=== PATIENT | female | born 1950 | race Caucasian/White ===

== ENCOUNTER 2022-02-24 06:13 | Emergency (ER) | payer MEDICARE, OTHER, SELFPAY ==
[2022-02-24 06:17] VITALS: BP 196/112; PULSE 84; RESP 18; TEMP 36.8; O2SAT 94; BMI 42.2
--- NOTE | 2022-02-24 06:37 | W.ED.SOB ---
HPI - SOB/Dyspnea General: Chief Complaint: Shortness of Breath/Dyspnea Stated Complaint: DEHYDRATION Time Seen by Provider: 02/24/22 06:24 History of Present Illness: HPI Narrative: 72-year-old female who presents to the emergency department with ongoing cough and shortness of breath. Patient reports that she for started having symptoms on the , 19 days ago. She saw her doctor around the . She was put on an antibiotic for possible pneumonia. This did not work and so she got changed to cefdinir on Wednesday, 9 days. She is about finished with this round of antibiotics. She has not noticed much improvement. Of note she has not had any fever or chills. 1 time she was checking her temperature she got 100.5 but could not reproduce that. Her cough is alternating between dry and productive of clear to yellow phlegm. It is worse with laying back and she notices it more during the day. She has been using cough drops. She has not complaining of any lower extremity swelling, pain, redness, hemoptysis. She is taking Xarelto for a history of chronic atrial fibrillation. She also suffers from chronic hypertension and takes metoprolol and hydrochlorothiazide. She has not yet taken her medications this morning. Reason for visit is the fact that her symptoms do not seem to be improving despite taking the medications offered by primary care physician. Of note she has not had a chest x-ray. She denies any known history of congestive heart failure (although she does not really understand this diagnosis during our conversation) Associated symptoms: Reports abdominal pain (coughed so hard feels a pain in right mid abdomen) and chest congestion; Deny chest pain, extremity pain, fever(s), hemoptysis, nausea, syncope or vomiting Review of Systems General: Reports: 10 or more systems reviewed and unremarkable except in HPI and below Const: Denies: fever(s), chills or body aches Eyes: Denies: change in vision ENMT: Denies: throat pain Card: Denies: chest pain, edema or syncope Resp: Reports: dyspnea, productive cough and chest congestion; Denies: wheezing, pain on inspiration or hemoptysis GI: Reports: abdominal pain (coughed so hard feels a pain in right mid abdomen); Denies: nausea, vomiting, diarrhea, GI cramping or change in bowel habits : Denies: flank pain, dysuria or urinary frequency Musc: Denies: neck pain, back pain, extremity pain or extremity swelling Skin/Breast: Denies: rash or erythema Neuro: Denies: headache(s), numbness in extremities, weakness in extremities, lack of coordination or difficulty walking Physical Exam Const: COMMON NORMALS: no limitations, alert and well nourished EXAM LIMITATIONS: no altered mental status GENERAL APPEARANCE: cooperative and well developed ORIENTATION/CONSCIOUSNESS: Yes awake; not confused HENMT: COMMON NORMALS: normocephalic, atraumatic, external ears normal and Normal external nose present HEAD & SCALP: normal to inspection, normocephalic and atraumatic FACE & SINUS: face symmetric NOSE: Normal external nose present EXTERNAL EAR: Yes external ears normal MOUTH: no muffled voice Eye: COMMON NORMALS: EOMs intact bilaterally and conjunctivae normal GENERAL EYE: appearance normal, both eyes and all related structures CONJUNCTIVA: Yes conjunctivae normal Neck/C-Spine: COMMON NORMALS: no JVD GENERAL: Yes normal visual inspection and Yes trachea midline Resp: COMMON NORMALS: No retractions and No use of accessory muscles EFFORT & INSPECTION: Yes able to speak in complete sentences, Yes symmetric chest movement and Yes Actively coughing non-productive Cardio: COMMON NORMALS: no JVD and regular rate RATE: regular rate RHYTHM: abnormal rhythm PERIPHERAL PULSES: radial pulses present GI: COMMON NORMALS: Soft to palpation INSPECTION: Yes normal to inspection PALPATION: Yes Soft to palpation, No Tenderness to palpation present (GI) and No Guarding due to palpation present (GI) Back/Pelvis: COMMON NORMALS: thoraco-lumbar ROM normal Extremity: COMMON NORMALS: normal to inspection GENERAL: Yes normal exam except as noted Neuro: COMMON NORMALS: moves all extremities, no focal motor deficits and no sensory deficits noted SENSORIUM/ORIENTATION: Yes alert Psych: COMMON NORMALS: mental status grossly normal, Normal thought process present, cooperative, normal affect and speech normal SPEECH: Yes normal speech THOUGHT PROCESS: Normal thought process present Skin: COMMON NORMALS: no rashes or lesions noted, turgor normal and no jaundice GENERAL SKIN EXAM: no rashes or lesions noted and turgor normal Course Vital Signs: Vital signs: Vital Signs Temperature 98.3 F 02/24/22 06:17 Pulse Rate 81 02/24/22 08:38 Respiratory Rate 18 02/24/22 08:38 Blood Pressure 149/90 02/24/22 08:38 Pulse Oximetry 95 02/24/22 08:38 MDM - SOB/Dyspnea Medical Decision Making 72-year-old female with 19 days of cough and reported short of breath. She has been through 2 rounds of antibiotics without any subjective improvement. She is not hypoxic, tachypneic, or febrile on arrival. Her blood pressure is elevated and she is in atrial fibrillation--she has not yet taken her metoprolol, hydrochlorothiazide, Eliquis for the day. Pneumonia is still on differential diagnosis although with failure of antibiotics 1 must consider other causes such as noninfectious inflammatory diseases, congestive heart failure, effusions, neoplastic processes, etc. Pulmonary embolism is quite unlikely based on history and exam as well as the fact that the patient is taking Eliquis. She does seem to have orthopnea and dyspnea on exertion and so a proBNP is added. No evidence of JVD on examination. Chest x-ray does not show any sign of infiltrate but there is cardiomegaly. No significant pleural effusion. BNP elevated. Trop minimally elevated, but stable over 2 hrs. Patient given 40mg of lasix and is diuresing. She has hx of MVP. Pt will be started on 20mg of lasix with 20 meq K+ daily and I recommended she get an echocardiogram. I do not think she needs to continue cefdinir. Pt in agreement with plan. Lab Data : 02/24/22 06:24 02/24/22 06:24 Labs/Radiology: Radiology Impressions Chest X-Ray 02/24/22 07:32 IMPRESSION: 1. Mild cardiac enlargement. No acute cardiopulmonary process. Laboratory Results WBC 6.4 10^3/uL (4.0-10.0) 02/24/22 06:24 RBC 4.85 10^6/uL (4.1-5.3) 02/24/22 06:24 Hgb 14.3 g/dL (11.5-15.3) 02/24/22 06:24 Hct 45.5 % (37.0-47.0) 02/24/22 06:24 MCV 93.8 fl (81-99) 02/24/22 06:24 MCH 29.5 pg (28.0-34.0) 02/24/22 06:24 MCHC 31.4 g/dL (30.0-36.0) 02/24/22 06:24 RDW 14.4 % (12.1-15.1) 02/24/22 06:24 Plt Count 175 10^3/cmm (130-400) 02/24/22 06:24 MPV 11.7 fL (7.4-10.4) H 02/24/22 06:24 Neut % (Auto) 58.0 % 02/24/22 06:24 Lymph % (Auto) 27.0 % 02/24/22 06:24 [place] % (Auto) 12.3 % 02/24/22 06:24 Eos % (Auto) 1.6 % 02/24/22 06:24 Baso % (Auto) 0.8 % 02/24/22 06:24 Neut # (Auto) 3.69 10^3/uL (1.8-7.7) 02/24/22 06:24 Lymph # (Auto) 1.7 10^3/uL (0.8-4.8) 02/24/22 06:24 [place] # (Auto) 0.8 10^3/uL (0.2-0.9) 02/24/22 06:24 Eos # (Auto) 0.1 10^3/uL (0.0-0.8) 02/24/22 06:24 Baso # (Auto) 0.1 10^3/uL (0.0-0.1) 02/24/22 06:24 Nucleated RBC % (auto) 0 % 02/24/22 06:24 Nucleated RBCs # 0.0 /100WBC 02/24/22 06:24 Sodium 139 mmol/L (136-145) 02/24/22 06:24 Potassium 3.9 mmol/L (3.5-5.1) 02/24/22 06:24 Chloride 100 mmol/L (98-107) 02/24/22 06:24 Carbon Dioxide 32 mmol/L (22-29) H 02/24/22 06:24 Anion Gap 10.9 (5-19) 02/24/22 06:24 BUN 12 mg/dL (8-23) 02/24/22 06:24 Creatinine 0.7 mg/dL (0.5-0.9) 02/24/22 06:24 GFR Calculation Not Reportable 02/24/22 06:24 Glucose 111 mg/dL (65-115) 02/24/22 06:24 Calculated Osmolality 288 mOsm/kg (285-295) 02/24/22 06:24 Calcium 9.3 mg/dL (8.5-10.5) 02/24/22 06:24 Total Bilirubin 0.7 mg/dL (0.15-1.2) 02/24/22 06:24 AST 23 U/L (0-32) 02/24/22 06:24 ALT 21 U/L (0-33) 02/24/22 06:24 Alkaline Phosphatase 65 IU/L (35-105) 02/24/22 06:24 Troponin T Baseline 18 ng/L (0-10) H 02/24/22 06:24 Troponin T 120 Minute 18.34 ng/L (0-10) H 02/24/22 08:07 Delta Troponin T 0.34 ABS# (0-10) 02/24/22 08:07 NT-Pro-B Natriuret Pep 846 pg/mL (0-125) H 02/24/22 06:24 Total Protein 7.4 g/dL (6.6-8.7) 02/24/22 06:24 Albumin 4.0 g/dL (3.5-5.2) 02/24/22 06:24 Globulin 3.4 g/dL (1.3-4.6) 02/24/22 06:24 Discharge Plan Discharge Patient Disposition: Home Clinical Impression: Atrial fibrillation, Congestive heart failure Condition: Stable Prescriptions: New Lasix 20 mg tablet 10 mg PO DAILY Qty: 30 0RF potassium chloride 20 mEq tablet extended release 20 meq PO DAILY Qty: 30 0RF No Action multivitamin Tablet 1 tab PO BID 0RF atorvastatin 10 mg Tablet 10 mg PO QPM 0RF metoprolol tartrate 100 mg Tablet 200 mg PO BID 0RF Vitamin B-12 1,000 mcg Tablet 3,000 mcg PO DAILY 0RF levothyroxine 25 mcg Tablet 25 mcg PO QAM 0RF gabapentin 300 mg Capsule 300 mg PO BID PRN (Reason: Pain) 0RF cefdinir 300 mg capsule 300 mg PO Q12H 0RF Glucosamine Complex-MSM Capsule 1 cap PO DAILY 0RF hydrochlorothiazide 12.5 mg Tablet 12.5 mg PO QAM 0RF Vitamin D3 50 mcg (2,000 unit) Tablet 50 mcg PO BID 0RF Xarelto 20 mg Tablet 20 mg PO QPM 0RF Rx Instructions: must administer with evening meal potassium chloride 20 mEq Tablet Extended Release 20 meq PO QAM 0RF Discharge Orders: Discharge ED (Routine); Ordered 02/24/22 Ordered By: Rohit Alvarado Referrals: Mirtha Jama MD [Primary Care Provider] - 4-7 days (Consider being evaluated by cardiology and/or getting an echocardiogram. Your chest xray does not show pneumonia but you do have signs of congestive heart failure and enlarged heart.) Discharge Diet: Cardiac Discharge Activity: Resume usual activity Patient Instructions: Opioid Safety Coding Level of Care Code ED Parts Room Associate for Chg Fwd Exam Comprehensive
[2022-02-24] MEDS: hydroCHLOROthiazide 25 mg Tablet PO (06:47)
[2022-02-24] MEDS: benzonatate 100 mg Capsule 200 MG PO (06:47)
[2022-02-24] MEDS: metoprolol tartrate 50 mg Tablet 100 MG PO (06:47)
[2022-02-24] MEDS: acetaminophen 325 mg Tablet 650 MG PO (06:47)
[2022-02-24 06:52] LABS: Basophils # 0.1 10^3/uL (0.0-0.1); Basophils % 0.8 %; Eosinophils # 0.1 10^3/uL (0.0-0.8); Eosinophils % 1.6 %; Hematocrit 45.5 % (37.0-47.0); Hemoglobin 14.3 g/dL (11.5-15.3); Lymphocytes # 1.7 10^3/uL (0.8-4.8); Mean Corpuscular HGB Conc 31.4 g/dL (30.0-36.0); Mean Corpuscular Hemoglobin 29.5 pg (28.0-34.0); Mean Corpuscular Volume 93.8 fl (81-99); Mean Platelet Volume 11.7 fL (7.4-10.4); Monocytes # 0.8 10^3/uL (0.2-0.9); Monocytes % 12.3 %; Neutrophils # 3.69 10^3/uL (1.8-7.7); Nucleated Red Blood Cells % 0 %; Platelet Count 175 10^3/cmm (130-400); Red Blood Count 4.85 10^6/uL (4.1-5.3); Red Cell Distribution Width 14.4 % (12.1-15.1); White Blood Count 6.4 10^3/uL (4.0-10.0)
[2022-02-24 07:04] LABS: Troponin(5th) Baseline 18 ng/L (0-10)
[2022-02-24 07:15] LABS: Alanine Aminotransferase 21 U/L (0-33); Alkaline Phosphatase 65 IU/L (35-105); Anion Gap 10.9 (5-19); Aspartate Amino Transferase 23 U/L (0-32); Blood Urea Nitrogen 12 mg/dL (8-23); Calcium 9.3 mg/dL (8.5-10.5); Carbon Dioxide 32 mmol/L (22-29); Chloride 100 mmol/L (98-107); Globulin 3.4 g/dL (1.3-4.6); Glucose 111 mg/dL (65-115); NT Pro B Type Natriuretic Pept 846 pg/mL (0-125); Osmolality Calculated 288 mOsm/kg (285-295); Potassium 3.9 mmol/L (3.5-5.1); Sodium 139 mmol/L (136-145); Total Bilirubin 0.7 mg/dL (0.15-1.2); Total Protein 7.4 g/dL (6.6-8.7)
--- NOTE | 2022-02-24 07:32 | XR_ITS ---
WS: [id number] Exam: XR chest 2V* [id number] Date/Time of Exam: 02/24/2022 7:34 AM Reason For Exam: dyspnea No priors. The lungs are fully expanded and clear. Mild cardiac enlargement. Normal-appearing mediastinal silhou ette. Surgical clips along the left axilla. Signs of right upper quadrant abdominal surgery. Mild deg enerative change and dextroscoliosis of the T-spine. XR/XR chest 2V* [id number] IMPRESSION: 1. Mild cardiac enlargement. No acute cardiopulmonary process.
[2022-02-24] MEDS: FUROsemide 10 mg/mL SDV 4mL 40 MG IVP (08:08)
[2022-02-24 08:38] VITALS: BP 149/90; PULSE 81; RESP 18; O2SAT 95
[2022-02-24 08:40] LABS: Troponin 5 2HR 18.34 ng/L (0-10)
[2022-02-24 08:41] LABS: Troponin 5 2HR Delta 0.34 ABS# (0-10)
--- NOTE | 2022-02-24 08:52 | PC.PHAR ---
pt states she takes care of her own medications-pt states she gets most of her medications from [facility]-pt states she takes the medications entered-pt states she finished prednisone titrating dose (9d/s)and doxycycline hyclate 100mg bid (10d/s) filled on 02/11/22-pt states she is still taking cefdinir 300mg q12h filled 02/20/22 10d/s
== END 2022-02-24 09:37 | disposition home or self-care (01) ==
PROVIDERS: Emergency Provider Emergency Medicine; PCP Family Medicine
DX: I48.91 Unspecified atrial fibrillation (principal); I50.9 Heart failure, unspecified
CPT/HCPCS: 71046; 80053; 83880; 84484; 85025; 96374; 99284; J1940

== ENCOUNTER 2022-03-30 14:15 | Outpatient (CLI) | payer MEDICARE, OTHER, SELFPAY ==
--- NOTE | 2022-03-30 14:24 | USCV_ITS ---
Elise Case Age: 72 Gender: F : 1950 Exam Date: 03/30/2022 14:38 Ordering Phys: Mirtha Jama MD Technologist: IN[employer] [place] [facility] [place]: chest pain BP: 135 / 80 HR: 85 Rhythm: Sinus Technical Quality: Adequate MEASUREMENTS (Male / Female) Normal Values 2D ECHO LV Diastolic Diameter PLAX 3.8 cm 4.2 - 5.9 / 3.9 - 5.3 cm LV Systolic Diameter PLAX 2.5 cm IVS Diastolic Thickness 1.5 cm 0.6 - 1.0 / 0.6 - 0.9 cm IVS Systolic Thickness 1.1 cm LVPW Diastolic Thickness 1.2 cm 0.6 - 1.0 / 0.6 - 0.9 cm LVPW Systolic Thickness 1.5 cm LVOT Diameter 2.1 cm LV Ejection Fraction 2D Teich 65.0 % LV Ejection Fraction MOD 2C 62.1 % LV Ejection Fraction 2C AL 61.7 % LA Diameter 4.1 cm LA Width 3.8 cm LA Height 5.5 cm RA Width 4.4 cm RA Height 5.1 cm Aorta at Sinotubular Diameter 3.1 cm IVC Diameter 2.7 cm M-MODE Aortic Annulus Diameter 3.0 cm LA Ao Ratio MM 1.5 DOPPLER AV Peak Velocity 144.3 cm/s LVOT Peak Velocity 69.0 cm/s AV Area Cont Eq vti 1.9 cm squared AV Area Cont Eq pk 1.7 cm squared MV Area PHT 3.0 cm squared MV E' Velocity 62.0 cm/s Mitral E to MV E' Ratio 9.0 Mitral E to LV E' Lateral Ratio 9.7 Mitral E to LV E' Septal Ratio 8.4 TR Peak Velocity 298.1 cm/s TR Peak Gradient 35.5 mmHg TR Mean Velocity 228.7 cm/s TR Mean Gradient 23.0 mmHg TR Velocity Time Integral 94.4 cm TV Peak E Velocity 43.0 cm/s Right Atrial Pressure 3.0 mmHg Pulmonary Artery Systolic Pressu 38.5 mmHg PV Peak Velocity 74.0 cm/s RV Acceleration Time 0.2 s RV Ejection Time 0.4 s RV AcT/ET 0.5 FINDINGS Left Ventricle Normal left ventricular size and systolic function, EF 66 %. No regional wall motion abnormalities. Right Ventricle The right ventricle is normal in size and function. Right Atrium Mildly increased right atrial size. Left Atrium Mildly increased left atrial size. Mitral Valve No gross abnormalities noted Aortic Valve Thickened aortic valve. Tricuspid Valve No gross abnormalities noted.trace tricuspid valve regurgitation. Estimated pulmonary artery peak systolic pressure 39 mmHg Pulmonic Valve Structurally normal pulmonic valve without significant stenosis. There is no pulmonic regurgitation. Pericardium Normal pericardium without effusion. Aorta Normal aortic annulus size. IVC Inferior vena cava not visualized. CONCLUSIONS Normal left ventricular size and systolic function, EF 66 %. No regional wall motion abnormalities. Mild biatrial enlargement.. Thickened aortic valve. Trace tricuspid valve regurgitation. Estimated pulmonary artery peak systolic pressure 39 mmHg. There is no pericardial effusion. There are no intracardiac masses. No similar previous studies are available for comparison Dr Tera Ulrich MD FAC (Electronically Signed) Final Date: 31 March 2022 07:51 S
== END 2022-03-30 14:16 | disposition home or self-care (01) ==
LOC: RAD 14:20
PROVIDERS: PCP Family Medicine; Visit Provider Family Medicine
DX: R06.00 Dyspnea, unspecified (principal); I48.20 Chronic atrial fibrillation, unspecified; I07.1 Rheumatic tricuspid insufficiency
CPT/HCPCS: 93306

== ENCOUNTER 2025-08-27 22:58 | Emergency (ER) | payer MEDICARE, OTHER, SELFPAY ==
--- NOTE | 2025-08-27 23:02 | ECG_ITS ---
[facility] Test Date: 2025-08-27 Pat Name: Elise Case Department: Room: Gender: Female Supervising Broker: : 1950 Requested By: Abhijeet Gentile Order Number: [id number] Avis MD: Jalen Andrews M.D. Measurements Intervals [place] Rate: 70 P: 0 OK: 0 QRS: -11 QRSD: 98 T: -4 QT: 377 QTc: 407 Interpretive Statements ATRIAL FIBRILLATION MODERATE VOLTAGE CRITERIA FOR LVH, CONSIDER NORMAL VARIANT [MEETS CRITERIA IN ONE OF: R(aVL), S(V1), R(V5), R(V5/V6)+S(V1)] ABNORMAL RHYTHM ECG No previous ECG available for comparison Electronically Signed On 08-28-2025 10:11:10 [employer] OPERATOR by Jalen Andrews M.D. [email or web address]
--- NOTE | 2025-08-27 23:02 | XRR_ITS ---
PROCEDURE INFORMATION: Exam: XR Chest Exam date and time: 08/27/2025 11:47 PM Age: 75 years old Clinical indication: Cough and dyspnea; Additional info: Dyspnea/cough TECHNIQUE: Imaging protocol: Radiologic exam of the chest. Views: 1 view. COMPARISON: CR XR chest 2V* [id number] 02/24/2022 7:43 AM FINDINGS: Lungs: Unremarkable. No consolidation. Pleural spaces: Unremarkable. No pleural effusion. No pneumothorax. Heart/Mediastinum: Unremarkable. No cardiomegaly. Bones/joints: Unremarkable. XR/XR chest 1V portable [id number] IMPRESSION: No acute findings.
[2025-08-27 23:08] VITALS: BP 124/75; PULSE 77; RESP 20; TEMP 37.7; O2SAT 93; BMI 41.9
[2025-08-27 23:56] LABS: Hematocrit 30.8 % (36-47); Hemoglobin 10.00 g/dL (11.27-16.99); Mean Corpuscular HGB Conc 32.5 g/dL (30-55); Mean Corpuscular Hemoglobin 31.7 pg (27-33); Mean Corpuscular Volume 97.8 fl (85-98); Nucleated Red Blood Cells % 0 %; Platelet Count 151 10^3/cmm (157-399); Red Blood Count 3.15 10^6/uL (3.85-5.65); White Blood Count 2.41 10^3/uL (3.29-11.43)
--- NOTE | 2025-08-27 23:59 | W.ED.URI ---
HPI - URI/Sore Throat General: Chief Complaint: Upper Respiratory Infection Stated Complaint: Fever\Headache\Confusion Time Seen by Provider: 08/27/25 23:28 History of Present Illness: 75-year-old female presents emergency room with complaints of fever mild confusion cough and headache this afternoon. Patient has a history of recurrent breast cancer with endorgan metastasis. She has mets to the lungs. Temperatures improved since earlier this evening she had taken some Tylenol prior to arrival she has a moderate cough. She denies dysuria urgency or frequency no abdominal or chest pain. She was initially diagnosed with breast cancer around 10 years ago was had a couple of recurrences since then and is currently on oral chemotherapy for maintenance. She has chronic lower extremity edema which is unchanged per her report. Associated symptoms: Deny abdominal pain, chills, chest pain or fever(s) Related Data Home Medications ?Medication ?Instructions ?Recorded ?Confirmed atorvastatin 10 mg tablet 10 mg PO QPM 02/24/22 02/24/22 cefdinir 300 mg capsule 300 mg PO Q12H 02/24/22 02/24/22 cholecalciferol (vitamin D3) 50 50 mcg PO BID 02/24/22 02/24/22 mcg (2,000 unit) tablet (Vitamin D3) cyanocobalamin (vitamin B-12) 3,000 mcg PO DAILY 02/24/22 02/24/22 1,000 mcg tablet (Vitamin B-12) gabapentin 300 mg capsule 300 mg PO BID PRN Pain 02/24/22 02/24/22 cusmfrrjiqk-uyw-quzzhrcqn-vitC 1 cap PO DAILY 02/24/22 02/24/22 capsule (Glucosamine Complex-MSM capsule) hydrochlorothiazide 12.5 mg tablet 12.5 mg PO QAM 02/24/22 02/24/22 levothyroxine 25 mcg tablet 25 mcg PO QAM 02/24/22 02/24/22 metoprolol tartrate 100 mg tablet 200 mg PO BID 02/24/22 02/24/22 multivitamin 1 tab PO BID 02/24/22 02/24/22 potassium chloride 20 mEq 20 meq PO QAM 02/24/22 02/24/22 tablet,extended release rivaroxaban 20 mg tablet (Xarelto) 20 mg PO QPM 02/24/22 02/24/22 Previous Rx's ?Medication ?Instructions ?Recorded Lasix 20 mg tablet (furosemide) 10 mg (1/2 x 20 mg) PO DAILY CHF 02/24/22 #30 tabs potassium chloride 20 mEq 20 meq PO DAILY #30 tabs 02/24/22 tablet,extended release Allergies Allergy/AdvReac Type Severity Reaction Status Date / Time clindamycin Allergy ALGY-Swell Verified 02/24/22 06:46 Lip/Tongue/Throat codeine Allergy Unconscious Verified 02/24/22 06:46 Penicillins Allergy Unknown Verified 02/24/22 06:46 Review of Systems Const: Denies: fever(s) or chills Card: Denies: chest pain Resp: Denies: dyspnea GI: Denies: abdominal pain : Denies: dysuria, urinary frequency or urinary urgency Musc: Denies: neck pain or back pain Skin/Breast: Denies: rash PFSH ED PFSH: Medical History (Updated 08/28/25 @ 01:05 by Abhijeet Wade DO) Breast cancer metastasized to lung Physical Exam Const: COMMON NORMALS: no acute distress GENERAL APPEARANCE: cooperative and comfortable ORIENTATION/CONSCIOUSNESS: Yes awake, Yes oriented to person, Yes oriented to place and Yes oriented to time HENMT: COMMON NORMALS: normocephalic, atraumatic and hearing grossly normal bilaterally HEAD & SCALP: normocephalic and atraumatic Resp: COMMON NORMALS: normal respiratory effort, No retractions, No use of accessory muscles and clear to auscultation bilaterally AUSCULTATION: clear to auscultation bilaterally Cardio: COMMON NORMALS: regular rate, regular rhythm and No murmurs present (Cardio) RATE: regular rate RHYTHM: regular rhythm GI: COMMON NORMALS: Soft to palpation and No hepatosplenomegaly present AUSCULTATION: Yes normoactive bowel sounds PALPATION: Yes Soft to palpation, No Tenderness to palpation present (GI), No Guarding due to palpation present (GI) and Yes No hepatosplenomegaly present Extremity: COMMON NORMALS: normal to inspection, capillary refill normal, no clubbing, cyanosis or edema, no calf tenderness and no pedal edema Neuro: SENSORIUM/ORIENTATION: Yes oriented to person, Yes oriented to place and Yes oriented to time Skin: COMMON NORMALS: no rashes or lesions noted GENERAL SKIN EXAM: no rashes or lesions noted Course Vital Signs: Vital signs: Vital Signs Temperature 99.8 F H 08/27/25 23:08 Pulse Rate 83 08/28/25 01:08 Respiratory Rate 20 H 08/27/25 23:08 Blood Pressure 149/91 08/28/25 01:08 Pulse Oximetry 94 08/28/25 01:08 Oxygen Delivery Me thod Room Air 08/28/25 00:13 MDM - URI/Sore Throat Medical Decision Making Medical decision making Social determinants: Patient arrives here in the emergency room with her son has good social support I reviewed the patient's medical record. I reviewed the patient's current home meds as found on the chart Alternate historians: Son contributed to history Differential diagnosis: Pneumonia pleural effusion congestive heart failure Lab Review: Labs reviewed as found in the chart patient chronically mildly anemic also has a very mild thrombocytopenia. Creatinine slightly elevated at 1.4 from a baseline of 0.7 patient reports continued urine output. Urine shows significant amount of contamination does not appear to have a UTI. COVID is positive Imaging: Chest x-ray is increased markings particularly at the cardiophrenic angle on the right. More prominent than chest x-ray from February 2022. Consistent with patient's known history of metastatic breast cancer Assessment of risk: Level of risk: Moderate Hospitalization considerations: Considered hospitalization however the patient is maintaining her oxygen sats does not have a pneumonia at this time. Temperature is improved. While she does have clinical signs of COVID and did test positive this can be managed as an outpatient at this time Reexamination: On repeat exams time of discharge patient is stable maintaining oxygen sats on room air Assessment and plan: COVID-19 Will discharge home treat with supportive cares Tylenol and ibuprofen follow-up with her oncology group return if she has worsening symptoms particularly of chest pain. Medical Records I reviewed the patient's medical records. Lab Data I reviewed the patient's lab results. 08/27/25 23:45 08/28/25 00:48 Laboratory Results WBC 2.41 10^3/uL (3.29-11.43) L 08/27/25 23:45 RBC 3.15 10^6/uL (3.85-5.65) L 08/27/25 23:45 Hgb 10.00 g/dL (11.27-16.99) L 08/27/25 23:45 Hct 30.8 % (36-47) L 08/27/25 23:45 MCV 97.8 fl (85-98) 08/27/25 23:45 MCH 31.7 pg (27-33) 08/27/25 23:45 MCHC 32.5 g/dL (30-55) 08/27/25 23:45 RDW 18.3 % (12.1-15.1) H 08/27/25 23:45 Plt Count 151 10^3/cmm (157-399) L 08/27/25 23:45 MPV 10.5 fL (7.4-10.4) H 08/27/25 23:45 Neut % (Auto) 62.7 % 08/27/25 23:45 Lymph % (Auto) 19.1 % 08/27/25 23:45 [place] % (Auto) 16.2 % 08/27/25 23:45 Eos % (Auto) 0.0 % 08/27/25 23:45 Baso % (Auto) 1.2 % 08/27/25 23:45 Neut # (Auto) 1.51 10^3/uL (1.8-7.7) L 08/27/25 23:45 Lymph # (Auto) 0.5 10^3/uL (0.8-4.8) L 08/27/25 23:45 [place] # (Auto) 0.4 10^3/uL (0.2-0.9) 08/27/25 23:45 Eos # (Auto) 0.0 10^3/uL (0.0-0.8) 08/27/25 23:45 Baso # (Auto) 0.0 10^3/uL (0.0-0.1) 08/27/25 23:45 Nucleated RBC % (auto) 0 % 08/27/25 23:45 Nucleated RBCs # 0.0 /100WBC 08/27/25 23:45 Sodium 136 mmol/L (136-145) 08/28/25 00:48 Potassium 4.2 mmol/L (3.5-5.1) 08/28/25 00:48 Chloride 97 mmol/L (98-107) L 08/28/25 00:48 Carbon Dioxide 25 mmol/L (22-29) 08/28/25 00:48 Anion Gap 18.2 (5-19) 08/28/25 00:48 BUN 20 mg/dL (8-23) 08/28/25 00:48 Creatinine 1.4 mg/dL (0.5-0.9) H 08/28/25 00:48 GFR Calculation Not Reportable 08/28/25 00:48 Glucose 89 mg/dL (65-115) 08/28/25 00:48 Calculated Osmolality 284 mOsm/kg (285-295) L 08/28/25 00:48 Lactic Acid 0.7 mmol/L (0.5-2.2) 08/27/25 23:45 Calcium 9.8 mg/dL (8.5-10.5) 08/28/25 00:48 Total Bilirubin 0.6 mg/dL (0.15-1.2) 08/28/25 00:48 AST 21 U/L (0-32) 08/28/25 00:48 ALT 10 U/L (0-33) 08/28/25 00:48 Alkaline Phosphatase 76 U/L (35-105) 08/28/25 00:48 Total Protein 7.9 g/dL (6.6-8.7) 08/28/25 00:48 Albumin 3.9 g/dL (3.5-5.2) 08/28/25 00:48 Globulin 4.0 g/dL (1.3-4.6) 08/28/25 00:48 Urine Color Yellow (Yellow) 08/28/25 00:11 Urine Appearance Cloudy (CLEAR) A 08/28/25 00:11 Urine pH 5.5 (5-7) 08/28/25 00:11 Ur Specific [place] 1.027 (1.005-1.030) 08/28/25 00:11 Urine Protein 4+ (Negative) A 08/28/25 00:11 Urine Glucose (UA) Negative (Normal) 08/28/25 00:11 Urine Ketones Trace (Negative) 08/28/25 00:11 Urine Blood 2+ (Negative) A 08/28/25 00:11 Urine Nitrate Negative (Negative) 08/28/25 00:11 Urine Bilirubin Negative (Negative) 08/28/25 00:11 Urine Urobilinogen 1.0 mg/dL (Negative) 08/28/25 00:11 Ur Leukocyte Esterase Negative (Negative) 08/28/25 00:11 Urine RBC 6-10 /hpf (0-2) 08/28/25 00:11 Urine WBC 6-10 /hpf (0-5) 08/28/25 00:11 Ur Squamous Epith Cells 11-20 /hpf (0-5) H 08/28/25 00:11 Amorphous Sediment Not Reportable 08/28/25 00:11 Urine Bacteria None seen /hpf (NONE) 08/28/25 00:11 Hyaline Casts 45.90 /lpf 08/28/25 00:11 Influenza A (PCR) Negative (Negative) 08/27/25 23:39 Influenza Type B (PCR) Negative (Negative) 08/27/25 23:39 RSV (PCR) Negative (Negative) 08/27/25 23:39 SARS-CoV-2 (PCR) Positive (Negative) A 08/27/25 23:39 XR interpretation done by ED provider, pending radiology final review Discharge Plan Discharge Patient Disposition: Home Clinical Impression: COVID-19, Breast cancer metastasized to lung Condition: Stable Prescriptions: No Action multivitamin Tablet 1 tab PO BID atorvastatin 10 mg Tablet 10 mg PO QPM metoprolol tartrate 100 mg Tablet 200 mg PO BID Vitamin B-12 1,000 mcg Tablet 3,000 mcg PO DAILY levothyroxine 25 mcg Tablet 25 mcg PO QAM gabapentin 300 mg Capsule 300 mg PO BID PRN (Reason: Pain) cefdinir 300 mg capsule 300 mg PO Q12H Glucosamine Complex-MSM Capsule 1 cap PO DAILY hydrochlorothiazide 12.5 mg Tablet 12.5 mg PO QAM Vitamin D3 50 mcg (2,000 unit) Tablet 50 mcg PO BID Xarelto 20 mg Tablet 20 mg PO QPM Rx Instructions: must administer with evening meal potassium chloride 20 mEq Tablet Extended Release 20 meq PO QAM Lasix 20 mg tablet 10 mg PO DAILY Qty: 30 0RF potassium chloride 20 mEq tablet extended release 20 meq PO DAILY Qty: 30 0RF Discharge Orders: Discharge ED (Routine); Ordered 08/28/25 Ordered By: Abhijeet Wade Referrals: Rola Escalante DO [Primary Care Provider, Family Practice] Discharge Diet: Usual diet Discharge Activity: Increase activity as tolerated Patient Instructions: COVID-19 (Coronavirus Disease 2019) (ED), COVID-19 and Chronic Health Conditions (ED), COVID-19: Slow the Coronavirus Spread (ED), Face Coverings (Masks) and COVID-19 (ED), How to Recover from COVID-19 at Home (ED), Opioid Safety, Pain Management, Patient Portal & [place] Instructions Activity Restrictions/Additional Instructions: Thank you for choosing [facility] for your healthcare needs today. It is very important that you follow up as instructed or that you return to the Emergency Department should you have concerns or if your condition changes or worsens in any way. Emergency department visits are focused on emergent conditions, in some cases you may require further evaluation on an outpatient basis. You were seen emergency room with a complaint of fever and generally not feeling well with headaches. You tested positive for COVID your chest x-ray was normal and your oxygen saturations remain normal. Use Tylenol or Profen supportive cares for your COVID symptoms. Follow-up with your oncology team. If your symptoms worsen return to the emergency room. (Please note that included in your discharge packet is information concerning opioid safety and pain management. This information is given to all patients were discharged from the ER regardless of their discharge diagnosis or the medicines they usually take or are prescribed.) Print Language: Azeri Coding Level of Care Code ED Mixer [employer] for [place]
[2025-08-28 00:13] VITALS: BP 123/77; PULSE 75; O2SAT 98
[2025-08-28 00:16] LABS: Lactic Sepsis W/Reflex 0.7 mmol/L (0.5-2.2)
[2025-08-28 00:25] LABS: Slide Review Slide Review Perform
[2025-08-28 00:27] LABS: Glucose Urine UA Negative (Normal); Nitrate Urine Negative (Negative); Specific Gravity, Urine 1.027 (1.005-1.030)
[2025-08-28 00:31] LABS: Respiratory Syncytial Virus Ce NEGATIVE (Negative)
[2025-08-28 00:32] LABS: Add Urine Microscopic? YES
[2025-08-28 00:43] LABS: SARS-CoV-2 PCR Positive (Negative)
[2025-08-28 01:08] VITALS: BP 149/91; PULSE 83; O2SAT 94
[2025-08-28 02:01] LABS: Alanine Aminotransferase 10 U/L (0-33); Albumin Level 3.9 g/dL (3.5-5.2); Alkaline Phosphatase 76 U/L (35-105); Aspartate Amino Transferase 21 U/L (0-32); Blood Urea Nitrogen 20 mg/dL (8-23); Calcium 9.8 mg/dL (8.5-10.5); Carbon Dioxide 25 mmol/L (22-29); Chloride 97 mmol/L (98-107); Creatinine Clr Calc Pharmacy 50.0144; Globulin 4.0 g/dL (1.3-4.6); Glucose 89 mg/dL (65-115); Osmolality Calculated 284 mOsm/kg (285-295); Sodium 136 mmol/L (136-145); Total Protein 7.9 g/dL (6.6-8.7)
[2025-08-28 02:06] LABS: Anion Gap 18.2 (5-19); Potassium 4.2 mmol/L (3.5-5.1)
== END 2025-08-28 01:24 | disposition home or self-care (01) ==
PROVIDERS: Emergency Provider Family Medicine; PCP Family Medicine
DX: U07.1 COVID-19 (principal); C78.01 Secondary malignant neoplasm of right lung; Z85.3 Personal history of malignant neoplasm of breast; Z11.52 Encounter for screening for COVID-19
CPT/HCPCS: 36415; 71045; 80053; 81001; 83605; 85025; 87040; 87637; 93005; 99285